=== PATIENT | female | born 1950 | race Caucasian/White ===

== ENCOUNTER 2020-05-11 16:20 | Inpatient (IN) | payer OTHER, MEDICAID, SELFPAY ==
[~2020-05-11] VITALS: Ht 167.6 cm; Wt 57.2 kg
[2020-05-11 16:20] VITALS: BP 129/77
--- NOTE | 2020-05-11 16:20 | NUR ---
Pt triage at bedside.
--- NOTE | 2020-05-11 16:24 | NUR ---
Kyree MANTILLA from [facility] for COVID + result. Asymptomatic at this time.
[2020-05-11] MEDS ORDERED: PANT40EC PO (16:33)
[2020-05-11] MEDS ORDERED: RISP0.5T3 PO (16:33)
[2020-05-11] MEDS ORDERED: DONE5TAB6 PO (16:33)
[2020-05-11] MEDS ORDERED: DOCU-299 PO (16:33)
[2020-05-11] MEDS ORDERED: ASPI-1822 PO (16:33)
[2020-05-11] MEDS ORDERED: LAM200 PO (16:33)
[2020-05-11] MEDS ORDERED: ACET-2619 PO (16:33)
[2020-05-11] MEDS ORDERED: LACO1TAB PO (16:33)
--- NOTE | 2020-05-11 17:18 | NUR ---
Pt repositioned for comfort, HOB elevated, visible rise and fall of chest. VSS, will continue to monitor.
--- NOTE | 2020-05-11 17:56 | NUR ---
ROSHAN ALEXANDRA swab performed, walked to lab.
--- NOTE | 2020-05-11 18:14 | NUR ---
Hernan fong in EDM - 05/11/20 at 1815 by MED1 certified medication technician at bedside for XR-chest.
--- NOTE | 2020-05-11 18:15 | NUR ---
electroplating technician at bedside for XR left elbow and right hand.
[2020-05-11 18:23] LABS: HEMATOCRIT 37.9 % (36-48); HEMOGLOBIN 12.7 g/dL (12.0-16.0); MEAN CORPUSCULAR HEMOGLOBIN 29 pg (27-31); MEAN CORPUSCULAR HGB CONC 34 g/dL (33-37); MEAN CORPUSCULAR VOLUME 86.4 fL (80-94); PLATELET COUNT (AUTO) 118 K/uL (140-450); RED BLOOD CELL COUNT(AUTO) 4.38 MIL/uL (4.20-5.40); RED CELL DISTRIBUTION WIDTH 13.3 % (11.6-13.7); WHITE BLOOD COUNT (AUTO) 2.1 K/uL (4.8-10.8)
--- NOTE | 2020-05-11 18:46 | NUR ---
Pt taken to CT via [facility]peyman.
[2020-05-11 18:50] LABS: ALBUMIN 3.8 g/dL (3.4-5.0); CARBON DIOXIDE 30.4 mmol/L (21-32); CREATININE 0.7 mg/dL (0.6-1.3); POTASSIUM 3.4 mmol/L (3.5-5.1); TOTAL BILIRUBIN 0.4 mg/dL (0.0-1.0)
[2020-05-11 18:57] LABS: PROTHROMBIN TIME 9.3 secs (10.8-13.4)
--- NOTE | 2020-05-11 19:00 | NUR ---
WBC 2.1, [place] 20.1, Covid +-- critical values received from lab. Dr Dudley made aware
--- NOTE | 2020-05-11 19:20 | NUR ---
Gave report to LUCILA Moore. Transfered care at this time.
--- NOTE | 2020-05-11 20:32 | NUR ---
PT APPEARS TO BE SLEEPING IN BED. CONNECTED TO BEDSIDE MONITOR. VSS, R/R EQUAL, AND UNLABORED. SIDE RAIL X2, BED IN LOW POSITION, WILL CONTINUE TO MONITOR.
[2020-05-11] MEDS ORDERED: ZOLPIDEM 5 MG TAB PO PRN (21:20)
[2020-05-11] MEDS ORDERED: ALBUTEROL HFA MDI 90 MCG/ACTUATION 8 GM INH PRN (21:20)
[2020-05-11] MEDS ORDERED: DOCUSATE SODIUM 100 MG GELCAP PO PRN (21:20)
[2020-05-11] MEDS ORDERED: ONDANSETRON 4 MG/2 ML VIAL IVP PRN (21:20)
[2020-05-11] MEDS ORDERED: HYDROcodone/APAP 5/325 MG 1 TAB TAB PO PRN (21:20)
[2020-05-11] MEDS ORDERED: AZITHROMYCIN 250 MG TAB PO SCH (21:20)
[2020-05-11] MEDS ORDERED: MORPHINE SULFATE 2 MG/ML SYR IVP PRN (21:20)
[2020-05-11] MEDS ORDERED: LORazepam 2 MG/ML VIAL IM/IVP PRN (21:20)
[2020-05-11] MEDS ORDERED: ACETAMINOPHEN 325 MG TAB PO PRN (21:20)
[2020-05-11] MEDS ORDERED: DEXAMETHASONE 4 MG TAB PO SCH (21:20)
[2020-05-11 21:45] LABS: LYMPHOCYTES % (MANUAL) 36 % (20-46); MONOCYTES % (MANUAL) 21 % (5-12)
--- NOTE | 2020-05-11 22:00 | NUR ---
SPOKE WITH PT'S DAUGHTER DINESH, NOTIFIED HER OF PT BEING ADMITTED TO TELE RM 120 A. DAUGHTER ALSO STATED PT FELL LAST Friday05/07/20. SHE STATES PT'S GLASSES SMASHED INTO LEFT SIDE OF FACE, CREATING LARGE BRUISE ON SIDE OF FACE, PT ALSO COMPLAINED OF RIGHT HAND/WRIST PAIN WITH BRUISING. PT HAS BRUISES IN SEVERAL LOCATIONS ON BODY THAT APPEAR BLUISH/YELLOW IN HEALING STAGE.
--- NOTE | 2020-05-11 22:04 | NUR ---
REPORT GIVEN TO LUCILA YARBROUGH IN TELE. ALSO INFORMED LUCILA YARBROUGH OF CONVERSATION WITH DAUGHTER DINESH, ABOUT PAST, AND PRESENT MEDICAL HX.
[2020-05-11 22:09] LABS: CHOL/HDL RATIO 2.3 (1-4.5); FREE T4 (FREE THYROXINE) 1.07 ng/dL (0.76-1.46); MAGNESIUM 1.7 mg/dL (1.8-2.4); PHOSPHORUS 3.1 mg/dL (2.5-4.9); THYROID STIMULATING HORMONE 2.1 uIU/mL (0.34-3.74)
--- NOTE | 2020-05-11 22:30 | NUR ---
PATIENT ADMITTED TO THE UNIT FOR ED. PATIENT IS AWAKE, ALERT AND ORIENTED. PT CURRENTLY ON ROOM AIR, NO SOB OR SIGNS AND DISTRESS NOTED. SPLINT NOTED ON THE RIGHT WRIST/HAND. SKIN TEAR NOTED ON THE LEFT ELBOW, BRUISING NOTED ON THE LEFT PERIORBITAL AREA. PATIENT WAS ABLE TO AMBULATE FROM GRUNEY TO BED. PATIENT USED THE BEDSIDE COMMODE TO VOID. URINE SAMPLE COLLECTED. REINFORCED TEACHING ON USING THE CALL LIGHT WHEN IN NEED OF ASSISTANCE OR GETTING OUT OF BED. PT VERBALIZED UNDERSTANDING. BED IN LOWEST POSITION, BED ALARM ON. PT PLACED ON TELE MONITORING. WILL CONTINUE TO MONITOR
--- NOTE | 2020-05-11 22:35 | NUR ---
Patient will be admitted to care of DR. MARINELLI. Admited to TELE. Will go to room 120 A. Belongings list completed. Report to LUCILA YARBROUGH.
[2020-05-11] MEDS ORDERED: cefTRIAXone 1,000 MG VIAL ONE (22:57)
--- NOTE | 2020-05-11 22:58 | NUR ---
PLACED FABRICATED ULNUR/GUTTER SPLINT ON PT'S RIGHT HAND ON FOURTH AND FIFTH DIDGET, CHECKED PMSC'S BEFORE AND AFTER WITHOUT INCIDENT.
[2020-05-11] MEDS: NACL 0.9% 1,000 ML IV SCH (23:18)
[2020-05-12 00:17] VITALS: BP 114/77
[2020-05-12 01:51] LABS: APPEARANCE,URINE CLEAR (CLEAR); BILIRUBIN,URINE NEGATIVE (NEGATIVE); BLOOD, URINE TRACE-L (NEGATIVE); COLOR,URINE YELLOW (YELLOW); LEUKOCYTE ESTERASE ,URINE NEGATIVE (NEGATIVE); NITRITE, URINE NEGATIVE (NEGATIVE); PH,URINE 7.5 (5.0-9.0); UGLUCOSE NEGATIVE (NEGATIVE)
[2020-05-12 02:23] LABS: BARBITURATE, URINE NEGATIVE ng/ml (NEG <=200); BENZODIAZEPINE, URINE NEGATIVE ng/mL (NEG <=200); CANNABINOID, URINE NEGATIVE ng/mL (NEG <=50); COCAINE, URINE NEGATIVE ng/mL (NEG <=300); OPIATE, URINE NEGATIVE ng/mL (NEG <=2000); PHENCYCLIDINE SCREEN,URINE NEGATIVE ng/mL (NEG <=25)
[2020-05-12 02:32] LABS: RBC,URINE 0-5 /HPF (0-5); WBC,URINE 0-5 /HPF (0-5)
[2020-05-12 04:00] VITALS: BP 117/68
--- NOTE | 2020-05-12 04:14 | NUR ---
PT ASLEEP IN BED. NO S/S OF DISTRESS NOTED AT THIS TIME
[2020-05-12 06:21] LABS: ALBUMIN 3.2 g/dL (3.4-5.0); ANION GAP 12.4 (8-16); CREATININE 0.6 mg/dL (0.6-1.3); MAGNESIUM 1.7 mg/dL (1.8-2.4); PHOSPHORUS 2.8 mg/dL (2.5-4.9); POTASSIUM 3.4 mmol/L (3.5-5.1); TOTAL BILIRUBIN 0.2 mg/dL (0.0-1.0)
[2020-05-12 06:29] LABS: BASOPHILS % (AUTO) 0.3 % (0.0-2.0); EOSINOPHILS % (AUTO) 0.2 % (0.0-4.0); HEMATOCRIT 33.4 % (36-48); HEMOGLOBIN 11.3 g/dL (12.0-16.0); LYMPHOCYTES # (AUTO) 0.3 K/uL (2.5-16.5); LYMPHOCYTES % (AUTO) 20.5 % (20.5-51.1); MEAN CORPUSCULAR HEMOGLOBIN 29 pg (27-31); MEAN CORPUSCULAR HGB CONC 34 g/dL (33-37); MEAN CORPUSCULAR VOLUME 85.8 fL (80-94); MONOCYTES # (AUTO) 0.2 K/uL (0.8-1.0); MONOCYTES % (AUTO) 13.3 % (1.7-9.3); NEUTROPHILS % (AUTO) 65.7 % (42.2-75.2); PLATELET COUNT (AUTO) 103 K/uL (140-450); RED CELL DISTRIBUTION WIDTH 13.3 % (11.6-13.7)
[2020-05-12] MEDS: NACL 0.9% 1,000 ML IV SCH ×2 (06:58→17:20)
--- NOTE | 2020-05-12 07:38 | NUR ---
PATIENT REPORT GIVEN TO AM NURSE. PT ENDORSED IN STABLE CONDITION
[2020-05-12 08:31] LABS: WHITE BLOOD COUNT (AUTO) 1.6 K/uL (4.8-10.8)
[2020-05-12 08:45] VITALS: BP 148/73
--- NOTE | 2020-05-12 08:45 | NUR ---
PT COMFORTABLE IN BED AND STATES NO PAIN/DISCOMFORT.
[2020-05-12] MEDS ORDERED: NON-FORMULARY ITEM (Lacosamide (Vimpat) 150 MG) PO SCH (09:00)
[2020-05-12] MEDS ORDERED: DEXAMETHASONE 4 MG TAB PO SCH (09:00)
--- NOTE | 2020-05-12 09:14 | NUR ---
PATIENT HAS BEEN SCREENED AND CATEGORIZED MODERATE NUTRITION RISK. PATIENT WILL BE SEEN WITHIN 3-5 DAYS OF ADMISSION. 05/14/20 05/16/[address]
[2020-05-12] MEDS: PANTOPRAZOLE 40 MG TABEC PO SCH (09:24)
[2020-05-12] MEDS: lamoTRIgine 25 MG TAB PO SCH ×2 (09:25→21:35)
[2020-05-12] MEDS: ASCORBIC ACID 500 MG TAB PO SCH (09:26)
[2020-05-12] MEDS: ASPIRIN 81 MG TAB.CHEW PO SCH (09:26)
[2020-05-12] MEDS: AZITHROMYCIN 250 MG TAB PO SCH (09:26)
[2020-05-12] MEDS: DONEPEZIL 10 MG TAB PO SCH (09:26)
[2020-05-12] MEDS: VITAMIN D 400 IU TAB PO SCH (09:27)
[2020-05-12] MEDS: ZINC SULF 220 MG CAP PO SCH ×2 (09:27→21:36)
--- NOTE | 2020-05-12 11:23 | NUR ---
PT WATCHING TV IN ROOM AT [place], CONTINUES TO STATE NO PAIN/DISCOMFORT AT THE MOMENT.
[2020-05-12 12:00] VITALS: BP 137/78
--- NOTE | 2020-05-12 13:23 | NUR ---
DC NDT INSPECTOR: SPOKE TO PATIENT REGARDING HOSPITAL DC. EXPLAINED TO HER THAT SHE HAS TESTED POSITIVE FOR COVID AND WILL HAVE TO GO TO A SNF AT THIS TIME. HER PREFERENCE WAS TO BE CLOSES TO HOME SO SHE HAS CHOSE [facility]. FAXED PATIENTS CLINICALS TO [facility] Addendum: 05/12/20 at 1357 by Chantel Nash CM DC NDT INSPECTOR: PATIENT HAS BEEN ACCEPTED AT [facility]. PATIENT CAN GO TO ROOM 208-B UNDER DR. LOPEZ. Addendum: 05/12/20 at 1359 by Chantel Nash CM DC DAVID: SPOKE TO MERE CRUZ [phone] [facility] [phone] Addendum: 05/12/20 at 1401 by Chantel Nash CM DC NDT INSPECTOR: IRENA TORRES AT [facility] SHE IS ABLE TO SET UP TRANSPORTATION. NICOLAS [phone] Addendum: 05/14/20 at 1227 by Chantel Nash CM DC NDT INSPECTOR: PER YESSENIA LOMBARDI PATIENT IS READY FOR DC. CONTACTED [facility] [phone] AND SPOKE TO RANDAL. THEY DID NOT HAVE ANY AVAILABLE TRANSPORTATION FOR TODAY. CONTACTED [facility] THEY WELL DIDN'T HAVE ANY AVAILABLE TRANSPORTATION. NOTIFIED YESSENIA LOMBARDI SHE WILL LET DR. JOHNSON KNOW. SET UP TRANSPORTATION FOR TOMORROW MORNING WITH [facility] FOR 11:00 AM
--- NOTE | 2020-05-12 14:15 | NUR ---
PT ON BED SEMIFOWLERS AND C/O NO PAIN OR DISCOMFORT. PT STATES SHE HAS BEEN HAVING BM W/ NO DIFFICULTY.
[2020-05-12] MEDS ORDERED: POTASSIUM CHLORIDE 10 MEQ TABER PO SCH (15:15)
[2020-05-12] MEDS ORDERED: MAGNESIUM OXIDE 400 MG TAB PO SCH (15:15)
--- NOTE | 2020-05-12 15:45 | NUR ---
PT STATES NO PAIN OR DISCOMFORT IN BED AND ALSO WHILE AMBULATING TO THE COMMODE. PT HAS BEEN VOIDING W/O DIFFICULTY.
[2020-05-12 16:02] VITALS: BP 116/67
--- NOTE | 2020-05-12 16:05 | NUR ---
PT'S R AC 20G INFILTRATED AND BECAME TENDER; D/C IV. ATTEMPTED TO PLACE IV BUT PT REFUSED. NOTIFIED PT OF THE IMPORTANCE ON IVF NS FOR HYDRATION. PT STILL REFUSED TO ANOTHER IV TO BE PLACED AND STATED SHE WILL BE DRINKING FLUIDS INSTEAD. WILL MONITOR AND ENCOURAGE ORAL WATER INTAKE FREQUENTLY.
--- NOTE | 2020-05-12 18:01 | NUR ---
PT REFUSED AGAIN FOR AN IV TO BE PLACED, REINFORCED TEACHING ABOUT HYDRATION. PT STILL REFUSED IVF NS, AND STATED SHE WOULD DRINK WATER INSTEAD AGAIN. PT STATED NO PAIN OR DISCOMFORT.
--- NOTE | 2020-05-12 18:51 | NUR ---
PT RESTING COMFORTABLY ON BED, WATCHING TV. PT STABLE AT THIS TIME AND WILL ENDORSE CARE TO ELECTRICAL ENGINEER RN.
--- NOTE | 2020-05-12 19:15 | NUR ---
RECEIVED BEDSIDE REPORT FROM DAY SHIFT NURSE FOR CONTINUITY OF CARE. PT IS AWAKE AND ALERT, A&OX4. SPEAKING APPROPRIATELY. LUNG SOUNDS DIMINISHED, ON RA. MED-SURG PT. AMBULATORY TO THE BEDSIDE COMMODE WITH ASSISTANCE. LEFT PERIORBITAL BRUISING, LEFT ELBOW SKIN TEAR, RIGHT PINKY FINGER FX. SKIN IS WARM AND DRY. LAST BM WAS TODAY PER DAY SHIFT NURSE. NO IV IN PLACE AT THIS TIME. WILL PLACE SHORTLY. PLAN OF CARE DISCUSSED. PT IS STABLE AT THIS TIME. BED IS IN THE LOWEST POSITION AND CALL LIGHT WITHIN REACH.
[2020-05-12 20:00] VITALS: BP 89/52
--- NOTE | 2020-05-12 21:30 | NUR ---
NEW IV WAS PLACED IN THE LEFT AC 24 GAUGE. IV IS PATENT AND INFUSING. PT TOLERATED THE INSERTION WELL. IV WAS PLACED ON THE FIRST TRY. NO DISTRESS NOTED, PT IS STABLE.
[2020-05-12] MEDS: VIMPAT 10MG/ML ORAL SOLUTION PO SCH (21:34)
[2020-05-12] MEDS: risperiDONE 1 MG TAB PO SCH (21:35)
--- NOTE | 2020-05-12 23:30 | NUR ---
PT IS UP TO THE RESTROOM TO VOID. GAIT IS STEADY. COMMODE AT BESIDE. LINENS WERE CHANGED REQUESTED.
[2020-05-13] VITALS: BP 82/53
[2020-05-13] MEDS ORDERED: NACL 0.9% 500 ML IV ONE (01:00)
--- NOTE | 2020-05-13 01:00 | NUR ---
PT'S BP IS 82/53. NO DISTRESS NOTED. NOTIFIED DR. MARINELLI ABOUT THE BLOOD PRESSURE READING. SHE ORDERED A BOLUS OF 500 ML OF NS WIDE OPEN. WILL ASSESS PT'S BP AFTER IT HAS INFUSED. IV IS PATENT AND INTACT.
--- NOTE | 2020-05-13 01:30 | NUR ---
PT IS ASLEEP. NO RESPIRATORY DISTRESS NOTED. CHEST RISE AND FALL IS SYMMETRICAL. BREATHING IS UNLABORED. BED IS IN THE LOWEST POSITION AND BELONGINGS ARE WITHIN REACH. WILL CONTINUE TO MONITOR.
--- NOTE | 2020-05-13 02:30 | NUR ---
BP IS NOW 106/78. BP HAS INCREASED AND PT IS MORE STABLE. PT DENIES ANY DIZZINESS OR DISTRESS. PT ALSO DENIES PAIN AND SOB. PT IS STABLE AT THIS TIME.
[2020-05-13] MEDS: NACL 0.9% 1,000 ML IV SCH ×3 (03:37→23:20)
[2020-05-13 04:00] VITALS: BP 103/62
--- NOTE | 2020-05-13 04:30 | NUR ---
ROUNDED ON PT. SHE IS ASLEEP IN HIGH FOWLERS POSITION. BREATHING IS UNLABORED. IV IS INFUSING FLUIDS ORDERED. COMMODE IS AT THE BEDSIDE. BELONGINGS ARE IN REACH.
--- NOTE | 2020-05-13 05:47 | NUR ---
PT IS AWAKE AND UP TO THE BEDSIDE COMMODE TO VOID. GAIT IS STEADY AT THIS TIME. PT DENIES ANY PAIN. PT IS STABLE.
--- NOTE | 2020-05-13 07:20 | NUR ---
ENDORSED PT TO DAY SHIFT NURSE FOR CONTINUITY OF CARE. PT IS ASLEEP. NO DISTRESS NOTED. IV FLUIDS ARE INFUSING. PLAN OF CARE DISCUSSED. PT IS STABLE.
--- NOTE | 2020-05-13 07:22 | NUR ---
RECEIVED REPORT FROM NIGHT NURSE PATIENT IS AAOX4, ROOM AIR AMBULATORY WITH ASSIST ON CARDIAC DIET WITH LEFT PERIORBITAL BRUISE DUE TO S/P FALL, LEFT ELBOW. TEAR AND RIGHT LITTLE FINGER FRACTURE WITH SPLINT AND BANDAGE. IV SITES INTACT AND PATENT INFUSING WELL.SAFETY MEASURES IN PLACE AND CALL LIGHT WITHIN REACH.
[2020-05-13 07:31] LABS: BASOPHILS % (AUTO) 0.3 % (0.0-2.0); EOSINOPHILS % (AUTO) 0.3 % (0.0-4.0); HEMATOCRIT 31.4 % (36-48); HEMOGLOBIN 10.6 g/dL (12.0-16.0); LYMPHOCYTES # (AUTO) 0.9 K/uL (2.5-16.5); LYMPHOCYTES % (AUTO) 39.4 % (20.5-51.1); MEAN CORPUSCULAR HEMOGLOBIN 29 pg (27-31); MEAN CORPUSCULAR HGB CONC 34 g/dL (33-37); MEAN CORPUSCULAR VOLUME 85.4 fL (80-94); MONOCYTES # (AUTO) 0.4 K/uL (0.8-1.0); MONOCYTES % (AUTO) 16.3 % (1.7-9.3); PLATELET COUNT (AUTO) 106 K/uL (140-450); RED BLOOD CELL COUNT(AUTO) 3.68 MIL/uL (4.20-5.40); RED CELL DISTRIBUTION WIDTH 12.8 % (11.6-13.7); WHITE BLOOD COUNT (AUTO) 2.3 K/uL (4.8-10.8)
[2020-05-13 08:00] VITALS: BP 99/50
[2020-05-13 08:13] LABS: ALBUMIN 2.9 g/dL (3.4-5.0); ANION GAP 11.4 (8-16); CARBON DIOXIDE 26.9 mmol/L (21-32); CREATININE 0.5 mg/dL (0.6-1.3); MAGNESIUM 1.6 mg/dL (1.8-2.4); PHOSPHORUS 2.6 mg/dL (2.5-4.9); POTASSIUM 3.3 mmol/L (3.5-5.1); TOTAL BILIRUBIN 0.2 mg/dL (0.0-1.0)
[2020-05-13 08:20] LABS: NEUTROPHILS % (AUTO) 43.7 % (42.2-75.2)
--- NOTE | 2020-05-13 09:01 | NUR ---
PATIENT POTASSIUM 3.3 AND MAGNESIUM 1.[address] JOHNSON AND SHE SAID OK.
[2020-05-13] MEDS: ASPIRIN 81 MG TAB.CHEW PO SCH (09:10)
[2020-05-13] MEDS: VITAMIN D 400 IU TAB PO SCH (09:10)
[2020-05-13] MEDS: DONEPEZIL 10 MG TAB PO SCH (09:11)
[2020-05-13] MEDS: AZITHROMYCIN 250 MG TAB PO SCH (09:12)
[2020-05-13] MEDS: ZINC SULF 220 MG CAP PO SCH ×2 (09:13→20:10)
[2020-05-13] MEDS: ASCORBIC ACID 500 MG TAB PO SCH (09:14)
[2020-05-13] MEDS: PANTOPRAZOLE 40 MG TABEC PO SCH (09:14)
[2020-05-13] MEDS: lamoTRIgine 25 MG TAB PO SCH ×2 (09:15→20:09)
[2020-05-13] MEDS: VIMPAT 10MG/ML ORAL SOLUTION PO SCH ×2 (09:20→20:28)
--- NOTE | 2020-05-13 09:20 | NUR ---
VIMPAT 10MG/ML 15ML ORAL SUSPENSION GIVEN TO PATIENT.
--- NOTE | 2020-05-13 09:45 | NUR ---
MEDICATION DUE GIVEN CHECK VITAL SIGNS PRIOR TO MEDICATION BP 99/50 KS 77 AND PATIENT TOLERATED WELL NO DISTRESS NOTED DENIES PAIN ABLE TO SWALLOW AND EAT WELL/. SAFETY MEASURES IN PLACE CALL LIGHT WITHIN REACH.
[2020-05-13 12:00] VITALS: BP 104/63
--- NOTE | 2020-05-13 13:00 | NUR ---
CHANGED DRESSING AND CLEAN LEFT ELBOW SKIN TEAR, DRY AND NO DRAINAGE.
[2020-05-13] MEDS ORDERED: POTASSIUM CHLORIDE 10 MEQ TABER PO PRN (13:30)
[2020-05-13] MEDS ORDERED: MAG SULF 2000 MG/WATER PREMIX 50 ML IV PRN (13:30)
--- NOTE | 2020-05-13 14:00 | NUR ---
POTASSIUM CHLORIDE 40 MEQ AND MAGNESIUM 2000 MG GIVEN PATIENT TOLERATED WELL, POTASSIUM LEVEL 3.3 AND MAGNESIUM 1.6
[2020-05-13 16:00] VITALS: BP 103/62
--- NOTE | 2020-05-13 17:31 | NUR ---
IV OUT AND PATIENT COMPLAINS OF PAIN ON THE IV SITES
--- NOTE | 2020-05-13 19:29 | NUR ---
ENDORSED TO NIGHT NURSE FOR CONTINUITY OF CARE. PT IS STABLE.
--- NOTE | 2020-05-13 19:30 | NUR ---
RECEIVED REPORT FROM JEAN CHAVEZ. PT AOX4 ON ROOM AIR. NO S/S RESPIRATORY DISTRESS. NO C/O PAIN AT THIS TIME. NO IV SITE IN PLACE. HAS L PERIORBITAL BRUISE, L ELBOW SKIN TEAR, R PINKY FRACTURE. SAFETY MEASURES IN PLACE. CALL LIGHT WITHIN REACH. WILL CONTINUE TO MONITOR
[2020-05-13 20:00] VITALS: BP 101/57
[2020-05-13] MEDS: risperiDONE 1 MG TAB PO SCH (20:10)
--- NOTE | 2020-05-13 20:15 | NUR ---
ADMINISTERED SCHEDULED MEDS. MEDICATION EDUCATION PROVIDED. PT TOLERATED WELL. NO DISTRESS NOTED. WILL CONTINUE TO MONITOR
[2020-05-13] MEDS: ENOXAPARIN 60 MG/0.6 ML SYR SUBQ SCH (20:17)
--- NOTE | 2020-05-13 22:15 | NUR ---
PT AWAKE IN BED. WATCHING TELEVISION. RESPIRATIONS EVEN AND UNLABORED. DENIES SOB, DENIES PAIN. NO DISTRESS NOTED. WILL CONTINUE TO MONITOR
--- NOTE | 2020-05-14 00:30 | NUR ---
PT ASLEEP IN BED. NO S/S RESPIRATORY DISTRESS. WILL CONTINUE TO MONITOR
--- NOTE | 2020-05-14 03:46 | NUR ---
PT AWAKE RESTING IN BED. DENIES PAIN, DENIES DISCOMFORT. NO DISTRESS NOTED. WILL CONTINUE TO MONITOR
[2020-05-14 04:00] VITALS: BP 132/62
--- NOTE | 2020-05-14 07:15 | NUR ---
ENDORSED PT TO DAY RN FOR CONTINUITY OF CARE. PT IS IN STABLE CONDITION
--- NOTE | 2020-05-14 07:15 | NUR ---
RECEIVED PATIENT FROM NIGHT NURSE. PATIENT SITTING UP IN BED AWAKE AND ALERT. RESP EVEN AND UNLABORED ON ROOM AIR. DENIED OF PAIN AT THIS TIME. DROPLET PRECAUTIONS OBSERVED. L EYE NOTED WITH BRUISING, RIGHT ARM WITH SPLIT WRAPPED FROM ELBOW TO RIGHT PINKY. SEIZURE AND FALL PRECAUTIONS IN PLACE. PATIENT ABLE TO FOLLOW COMMANDS. RAC 24G INFUSING NS. PLAN OF CARE DISCUSSED WITH PATIENT. PATIENT VERBALIZED UNDERSTANDING. CALL LIGHT WITHIN REACH. SAFETY MEASURES IN PLACE. WILL CONTINUE TO MONITOR.
[2020-05-14 08:00] VITALS: BP 123/76
[2020-05-14] MEDS: ENOXAPARIN 60 MG/0.6 ML SYR SUBQ SCH ×2 (08:42→21:00)
[2020-05-14] MEDS: ASPIRIN 81 MG TAB.CHEW PO SCH (08:43)
[2020-05-14] MEDS: ASCORBIC ACID 500 MG TAB PO SCH (08:48)
[2020-05-14] MEDS: DONEPEZIL 10 MG TAB PO SCH (08:48)
[2020-05-14] MEDS: AZITHROMYCIN 250 MG TAB PO SCH (08:48)
[2020-05-14] MEDS: lamoTRIgine 25 MG TAB PO SCH ×2 (08:48→21:01)
[2020-05-14] MEDS: PANTOPRAZOLE 40 MG TABEC PO SCH (08:49)
[2020-05-14] MEDS: ZINC SULF 220 MG CAP PO SCH ×2 (08:49→21:00)
[2020-05-14] MEDS: VITAMIN D 400 IU TAB PO SCH (08:49)
--- NOTE | 2020-05-14 08:50 | NUR ---
MORNING ROUTINE MEDICATIONS GIVEN. PATIENT TOLERATED WELL. PATIENT SITTING UP IN BED AWAKE, ALERT, AND ORIENTED X4. RESP EVEN AND UNLABORED ON ROOM AIR. DENIED OF PAIN AT THIS TIME. LEFT ELBOW SKIN LACERATION NOTED COVERED WITH ISLAND DRESSING, RIGHT ARM SPLIT COVERED IN SILVER BANDAGE WITH PINK AND 4TH DIGIT, LEFT PERIORBITAL BRUISING NOTED. PATIENT IS HARD TO HEAR TO BOTH EARS BUT ABLE TO ACKNOWLEDGE NEEDS. PATIENT USED BEDSIDE COMMODE WITHOUT ANY DIFFICULTY. SAFETY MEASURES IN PLACE. SEIZURE PRECAUTION IN PLACE. CALL LIGHT WITHIN REACH. WILL CONTINUE TO MONITOR.
[2020-05-14] MEDS: VIMPAT 10MG/ML ORAL SOLUTION PO SCH ×2 (08:59→21:02)
[2020-05-14] MEDS: NACL 0.9% 1,000 ML IV SCH ×2 (09:17→19:20)
[2020-05-14 10:21] LABS: BASOPHILS % (AUTO) 0.1 % (0.0-2.0); EOSINOPHILS % (AUTO) 0.1 % (0.0-4.0); HEMATOCRIT 35.7 % (36-48); HEMOGLOBIN 11.9 g/dL (12.0-16.0); LYMPHOCYTES # (AUTO) 0.5 K/uL (2.5-16.5); LYMPHOCYTES % (AUTO) 12.7 % (20.5-51.1); MEAN CORPUSCULAR HEMOGLOBIN 29 pg (27-31); MEAN CORPUSCULAR HGB CONC 34 g/dL (33-37); MEAN CORPUSCULAR VOLUME 86.9 fL (80-94); MONOCYTES # (AUTO) 0.5 K/uL (0.8-1.0); MONOCYTES % (AUTO) 11.8 % (1.7-9.3); NEUTROPHILS # (AUTO) 3.1 K/uL (1.8-7.7); NEUTROPHILS % (AUTO) 75.3 % (42.2-75.2); PLATELET COUNT (AUTO) 110 K/uL (140-450); RED BLOOD CELL COUNT(AUTO) 4.11 MIL/uL (4.20-5.40); RED CELL DISTRIBUTION WIDTH 13.1 % (11.6-13.7); WHITE BLOOD COUNT (AUTO) 4.1 K/uL (4.8-10.8)
[2020-05-14 10:29] LABS: ANION GAP 13.6 (8-16); CARBON DIOXIDE 27.1 mmol/L (21-32); CREATININE 0.8 mg/dL (0.6-1.3)
[2020-05-14 10:35] LABS: MAGNESIUM 1.7 mg/dL (1.8-2.4); PHOSPHORUS 2.2 mg/dL (2.5-4.9)
[2020-05-14 10:36] LABS: POTASSIUM 2.7 mmol/L (3.5-5.1)
--- NOTE | 2020-05-14 10:55 | NUR ---
PATIENT IN BED AWAKE AND ALERT WATCHING TV. DENIED OF PAIN AT THIS TIME. NO SOB REPORTED. NO COUGHS. CALL LIGHT WITHIN REACH. WILL CONTINUE TO MONITOR.
--- NOTE | 2020-05-14 12:35 | NUR ---
PATIENT SITTING UP IN BED EATING LUNCH, TOLERATING WELL. NO NOTED DISTRESS AT THIS TIME. CALL LIGHT WITHIN REACH. WILL CONTINUE TO MONITOR.
--- NOTE | 2020-05-14 14:35 | NUR ---
PATIENT IN BED AWAKE AND ALERT WATCHING TV. RESP EVEN AND UNLABORED ON ROOM AIR. DENIED OF PAIN. PATIENT USED BEDSIDE COMMODE WITHOUT ANY ASSIST. ABLE TO MAKE NEEDS KNOWN. CALL LIGHT WITHIN REACH. WILL CONTINUE TO MONITOR.
[2020-05-14] MEDS ORDERED: MAG SULF 2000 MG/WATER PREMIX 50 ML IV SCH (14:45)
[2020-05-14] MEDS ORDERED: POTASSIUM PHOSPHATE 15 MM in NACL 0.9% 250 ML IV SCH (14:45)
[2020-05-14 16:00] VITALS: BP 126/76
--- NOTE | 2020-05-14 16:38 | NUR ---
PATIENT IN BED RESTING, CHEST NOTED RISING. NO ACUTE S/S DISTRESS. CALL LIGHT WITHIN REACH. WILL CONTINUE TO MONITOR.
--- NOTE | 2020-05-14 18:21 | NUR ---
RAC 22G INFILTRATED. IV INSERTION TO LEFT UPPER ARM 22G USING ASEPTIC TECHNIQUE. PATIENT TOLERATED WELL. IV FLUID RESUMES. RESP EVEN AND UNLABORED ON ROOM AIR. DENIED OF PAIN AT THIS TIME. CALL LIGHT WITHIN REACH. WILL CONTINUE TO MONITOR.
[2020-05-14] MEDS ORDERED: POTASSIUM CHLORIDE 10 MEQ TABER PO PRN ×2 (19:05)
[2020-05-14] MEDS ORDERED: MAG SULF 2000 MG/WATER PREMIX 50 ML IV PRN ×2 (19:05)
--- NOTE | 2020-05-14 19:15 | NUR ---
ENDORSED PATIENT TO NIGHT NURSE. PATIENT IN STABLE CONDITION.
--- NOTE | 2020-05-14 19:16 | NUR ---
RECEIVED REPORT FROM JEAN RNRANDAL. PT AWAKE AND ALERT. NO S/S RESPIRATORY DISTRESS ON ROOM AIR. DENIES PAIN AT THIS TIME. BRUISE ON LEFT EYE. RIGHT ARM WITH SPLINT WRAPPED FROM ELBOW TO PINKY. SEIZURE AND FALL PRECAUTIONS IN PLACE. RAC 24G INFUSING NS. CALL LIGHT WITHIN REACH. SAFETY MEASURES IN PLACE. WILL CONTINUE TO MONITOR.
[2020-05-14 20:00] VITALS: BP 102/67
[2020-05-14] MEDS: risperiDONE 1 MG TAB PO SCH (21:00)
--- NOTE | 2020-05-14 21:12 | NUR ---
ADMINISTERED SCHEDULED MEDS PER MD. MEDICATION EDUCATION PROVIDED. PT TOLERATED WELL. NO DISTRESS NOTED. WILL CONTINUE TO MONITOR
--- NOTE | 2020-05-14 23:35 | NUR ---
PT AWAKE RESTING IN BED. WATCHING TELEVISION. DENIES PAIN, NO S/S RESPIRATORY DISTRESS. WILL CONTINUE TO MONITOR
--- NOTE | 2020-05-15 01:20 | NUR ---
PT ASLEEP IN BED. RESPIRATIONS EVEN AND UNLABORED. WILL CONTINUE TO MONITOR
[2020-05-15 04:00] VITALS: BP 118/84
[2020-05-15] MEDS: NACL 0.9% 1,000 ML IV SCH (05:20)
[2020-05-15 06:17] LABS: BASOPHILS % (AUTO) 0.1 % (0.0-2.0); HEMATOCRIT 36.1 % (36-48); HEMOGLOBIN 12.2 g/dL (12.0-16.0); LYMPHOCYTES # (AUTO) 0.5 K/uL (2.5-16.5); LYMPHOCYTES % (AUTO) 12.7 % (20.5-51.1); MEAN CORPUSCULAR HEMOGLOBIN 29 pg (27-31); MEAN CORPUSCULAR HGB CONC 34 g/dL (33-37); MEAN CORPUSCULAR VOLUME 85.8 fL (80-94); MONOCYTES # (AUTO) 0.6 K/uL (0.8-1.0); MONOCYTES % (AUTO) 15.1 % (1.7-9.3); NEUTROPHILS # (AUTO) 2.8 K/uL (1.8-7.7); NEUTROPHILS % (AUTO) 72.1 % (42.2-75.2); PLATELET COUNT (AUTO) 131 K/uL (140-450); RED BLOOD CELL COUNT(AUTO) 4.21 MIL/uL (4.20-5.40); WHITE BLOOD COUNT (AUTO) 3.9 K/uL (4.8-10.8)
[2020-05-15 06:40] LABS: MAGNESIUM 1.8 mg/dL (1.8-2.4); PHOSPHORUS 2.7 mg/dL (2.5-4.9)
[2020-05-15 06:45] LABS: ANION GAP 11.7 (8-16); CARBON DIOXIDE 29.6 mmol/L (21-32); CREATININE 0.7 mg/dL (0.6-1.3); POTASSIUM 3.3 mmol/L (3.5-5.1)
--- NOTE | 2020-05-15 07:19 | NUR ---
ENDORSED PT TO DAY RN FOR CONTINUITY OF CARE. PT IS IN STABLE CONDITION
--- NOTE | 2020-05-15 07:20 | NUR ---
Received report from PM RN for continuity of care. Pt is stable, resting with eyes closed at this time. Safety measures in place. Call light within reach. Will continue with POC.
[2020-05-15 08:00] VITALS: BP 100/53
[2020-05-15] MEDS: ASPIRIN 81 MG TAB.CHEW PO SCH (09:29)
[2020-05-15] MEDS: VITAMIN D 400 IU TAB PO SCH (09:29)
[2020-05-15] MEDS: ZINC SULF 220 MG CAP PO SCH (09:29)
[2020-05-15] MEDS: PANTOPRAZOLE 40 MG TABEC PO SCH (09:29)
[2020-05-15] MEDS: ASCORBIC ACID 500 MG TAB PO SCH (09:29)
[2020-05-15] MEDS: lamoTRIgine 25 MG TAB PO SCH (09:30)
[2020-05-15] MEDS: DONEPEZIL 10 MG TAB PO SCH (09:30)
[2020-05-15] MEDS: AZITHROMYCIN 250 MG TAB PO SCH (09:30)
[2020-05-15] MEDS: ENOXAPARIN 60 MG/0.6 ML SYR SUBQ SCH (09:33)
[2020-05-15] MEDS: VIMPAT 10MG/ML ORAL SOLUTION PO SCH (09:37)
--- NOTE | 2020-05-15 09:40 | NUR ---
PT IS AWAKE AND ORIENTED X4. IN NO DISTRESS. RESP EVEN AND UNLABORED. TOLERATED PO MEDICATION WITH NO PROBLEMS. LUNG SOUNDS DIMINISHED, ABD IS SOFT AND NONTENDER WITH ACTIVE BS. DISCOLORATION REMAINS TO LEFT EYE AND ELBOW COVERED WITH DRESSING. PT HAS INTACT AND PATENT IV ACCESS TO RIGHT AC RECEIVING IVF. HAS SPLINT TO RIGHT PINKY FINGER. SAFETY MEASURES IN PLACE. WILL CONTINUE TO MONITOR. PT RECEIVED K DUR FOR K 3.3 WILL CONTINUE TO MONITOR AND CONTINUE WITH POC.
[2020-05-15 10:38] VITALS: BP 100/53
[2020-05-15] MEDS ORDERED: VITC500 PO (10:56)
[2020-05-15] MEDS ORDERED: POTA10TE30 PO (10:56)
[2020-05-15] MEDS ORDERED: DEXA6TAB1 PO (10:56)
[2020-05-15] MEDS ORDERED: LAM25 PO (10:56)
[2020-05-15] MEDS ORDERED: LOV60I SUBQ (10:56)
[2020-05-15] MEDS ORDERED: ZINC220C28 PO (10:56)
[2020-05-15] MEDS ORDERED: AZIT250T11 PO (10:56)
[2020-05-15] MEDS ORDERED: VITD400 PO (10:56)
--- NOTE | 2020-05-15 11:42 | NUR ---
PT DISCHARGE AT THIS TIME PT IN NO DISTRESS. CONTINUES TO HAVE SAME INJURIES UPON ADMISSION INCLUDING DISCOLORATION TO LEFT EYE AND SKIN TEAR TO ELBOW. LEFT WITH ALL BELONGINGS AND DISCHARGE PACKAGE, VERBALIZED UNDERSTANDING. COPY OF CHART PROVIDED FOR OTHER FACILITY
== END 2020-05-15 11:42 | DRG 178 ==
LOC: MED 16:20 → MTU 21:21
PROVIDERS: ADMIT Family Medicine; ATTEND Family Medicine
DX: U07.1 COVID-19 (principal); E44.0 Moderate protein-calorie malnutrition; E83.39 Other disorders of phosphorus metabolism; G40.909 Epilepsy, unspecified, not intractable, without status epilepticus; I10 Essential (primary) hypertension; K21.9 Gastro-esophageal reflux disease without esophagitis; F03.90 Unspecified dementia, unspecified severity, without behavioral disturbance, psychotic disturbance, mood disturbance, and anxiety; E83.42 Hypomagnesemia; D72.829 Elevated white blood cell count, unspecified; E87.6 Hypokalemia; R26.9 Unspecified abnormalities of gait and mobility; S62.619A Displaced fracture of proximal phalanx of unspecified finger, initial encounter for closed fracture; S50.312A Abrasion of left elbow, initial encounter; W01.0XXA Fall on same level from slipping, tripping and stumbling without subsequent striking against object, initial encounter; Y93.89 Activity, other specified; Y92.89 Other specified places as the place of occurrence of the external cause; Z68.20 Body mass index [BMI] 20.0-20.9, adult; Y99.8 Other external cause status
CPT/HCPCS: 36415; 70450; 71045; 72125; 72220; 73080; 73130; 80048; 80053; 80305; 81001; 82150; 82550; 83036; 83605; 83615; 83690; 83735; 83880; 84100; 84439; 84443; 84484; 85025; 85379; 85610; 85651; 86140; 87081; 93005; 97116; 97161-GP; 97530; 99285; J0696; J1650; J3475; J7030; J7060

== ENCOUNTER 2020-11-10 08:40 | Emergency (ER) | payer OTHER, MEDICAID ==
[~2020-11-10] VITALS: Ht 170.2 cm; Wt 49.9 kg
[~2020-11-10 08:40] MED LIST: ACET-2619 PO; ALUM355S59 PO; ASPI-1822 PO; ATOR20TA40 PO; CHOL25TA2 PO; DOCU-299 PO; DONE5TAB6 PO; LACO1TAB PO; LAM200 PO; LISI-648 PO; POTA10TE30 PO; RISP0.5T3 PO; VITC500 PO; ZINC220C28 PO
[2020-11-10 08:43] VITALS: BP 104/56
[2020-11-10] MEDS ORDERED: DOCU1TAB73 PO (08:52)
[2020-11-10] MEDS ORDERED: MEMA10TA PO (08:52)
[2020-11-10] MEDS ORDERED: BISA-28 PO (08:52)
[2020-11-10] MEDS ORDERED: LACO150T PO (08:52)
[2020-11-10] MEDS: ACETAMINOPHEN 325 MG TAB PO ONE ×2 (08:59→09:02)
[2020-11-10 09:10] LABS: BASOPHILS % (AUTO) 0.6 % (0.0-2.0); EOSINOPHILS # (AUTO) 0.1 K/uL (0-0.4); EOSINOPHILS % (AUTO) 1.6 % (0.0-4.0); HEMATOCRIT 36.5 % (36-48); HEMOGLOBIN 12.6 g/dL (12.0-16.0); LYMPHOCYTES # (AUTO) 0.5 K/uL (2.5-16.5); LYMPHOCYTES % (AUTO) 13.8 % (20.5-51.1); MEAN CORPUSCULAR HEMOGLOBIN 30 pg (27-31); MEAN CORPUSCULAR HGB CONC 35 g/dL (33-37); MEAN CORPUSCULAR VOLUME 86.7 fL (80-94); MONOCYTES # (AUTO) 0.6 K/uL (0.8-1.0); MONOCYTES % (AUTO) 16.4 % (1.7-9.3); NEUTROPHILS # (AUTO) 2.3 K/uL (1.8-7.7); NEUTROPHILS % (AUTO) 67.6 % (42.2-75.2); PLATELET COUNT (AUTO) 107 K/uL (140-450); RED BLOOD CELL COUNT(AUTO) 4.21 MIL/uL (4.20-5.40); WHITE BLOOD COUNT (AUTO) 3.4 K/uL (4.8-10.8)
[2020-11-10 09:27] LABS: ALBUMIN 3.5 g/dL (3.4-5.0); ANION GAP 11.3 (8-16); CARBON DIOXIDE 28.5 mmol/L (21-32); CREATININE 0.8 mg/dL (0.6-1.3); POTASSIUM 3.8 mmol/L (3.5-5.1); TOTAL BILIRUBIN 0.5 mg/dL (0.0-1.0)
[2020-11-10] MEDS ORDERED: MIRABULK PO (09:41)
[2020-11-10 10:04] VITALS: BP 92/56
== END 2020-11-10 10:05 | disposition home or self-care (01) ==
LOC: MED 08:40
DX: K59.00 Constipation, unspecified (principal); R07.0 Pain in throat; D69.6 Thrombocytopenia, unspecified; F03.90 Unspecified dementia, unspecified severity, without behavioral disturbance, psychotic disturbance, mood disturbance, and anxiety; I10 Essential (primary) hypertension; Z79.899 Other long term (current) drug therapy
CPT/HCPCS: 36415; 71045; 80053; 83690; 84484; 85025; 93005; 99285

== ENCOUNTER 2020-11-13 11:16 | Emergency (ER) | payer OTHER, MEDICAID ==
[~2020-11-13] VITALS: Ht 162.6 cm; Wt 58.1 kg
[~2020-11-13 11:16] MED LIST changes: -ALUM355S59 PO; +BISA-28 PO; -DOCU-299 PO; +DOCU1TAB73 PO; +LACO150T PO; -LACO1TAB PO; +MEMA10TA PO; +MIRABULK PO
--- NOTE | 2020-11-13 11:16 | NUR ---
Patient BIBA to bed 8 at this time.
[2020-11-13 11:23] VITALS: BP 117/77
--- NOTE | 2020-11-13 11:32 | NUR ---
PT BIBA FROM [facility] WITH C/O CHEST PAIN, PT DENIES ANY CHEST PAIN AT THIS MOMENT, VSS, PT IS CONFUSED, AAOX2. STATED SHE JUST FELL FROM THE CHAIR. DENIES PAIN AT THIS MOMENT. HX: DEMENTIA, ALZHEIMERS, NEUROPATHY, HYPERLIDIPDEMIA, ARTHRITIS, SUNDOWNERS, HALLUSINATIONS, EPILEPSY, DEPRESSION ALLERGY: CODEINE RX: ACETAMINOPHEN, ASA, ATORVASTATIN, BISACODYL, CHOLECALCIFEROL, DONEPEZIL, LAMOTRIGINE, LISINOPRIL, NAMENDA, KCL, RISPERIDONE, SENNA, VIMPAT, VIT C, ZINC.
--- NOTE | 2020-11-13 11:35 | NUR ---
Dr. Morales at bedside evaluating patient.
[2020-11-13] MEDS ORDERED: LAM25 PO (11:41)
[2020-11-13] MEDS ORDERED: ASPIRIN 325 MG TAB PO ONE (11:45)
[2020-11-13 12:01] LABS: BASOPHILS % (AUTO) 0.7 % (0.0-2.0); EOSINOPHILS % (AUTO) 0.4 % (0.0-4.0); HEMATOCRIT 37.5 % (36-48); HEMOGLOBIN 12.6 g/dL (12.0-16.0); LYMPHOCYTES # (AUTO) 1.2 K/uL (2.5-16.5); LYMPHOCYTES % (AUTO) 33.4 % (20.5-51.1); MEAN CORPUSCULAR HEMOGLOBIN 30 pg (27-31); MEAN CORPUSCULAR HGB CONC 34 g/dL (33-37); MEAN CORPUSCULAR VOLUME 88.7 fL (80-94); MONOCYTES # (AUTO) 0.6 K/uL (0.8-1.0); MONOCYTES % (AUTO) 15.9 % (1.7-9.3); NEUTROPHILS # (AUTO) 1.7 K/uL (1.8-7.7); NEUTROPHILS % (AUTO) 49.6 % (42.2-75.2); PLATELET COUNT (AUTO) 104 K/uL (140-450); RED BLOOD CELL COUNT(AUTO) 4.23 MIL/uL (4.20-5.40); WHITE BLOOD COUNT (AUTO) 3.5 K/uL (4.8-10.8)
[2020-11-13 12:09] LABS: CARBON DIOXIDE 29.8 mmol/L (21-32); CREATININE 0.7 mg/dL (0.6-1.3); POTASSIUM 3.8 mmol/L (3.5-5.1)
--- NOTE | 2020-11-13 18:11 | NUR ---
PT PROVIDED WITH MEAL TRAY AND SET UP EATING WHILE WAITING FOR TRANSPORTATION.
--- NOTE | 2020-11-13 18:50 | NUR ---
[facility] AT BEDSIDE
[2020-11-13 19:04] VITALS: BP 128/72
--- NOTE | 2020-11-13 19:07 | NUR ---
Patient discharged with v/s stable. Written and verbal after care instructions given and explained. Patient verbalized understanding. [facility]. All questions addressed prior to discharge. Advised to follow up with PMD.
== END 2020-11-13 19:07 | disposition home or self-care (01) ==
LOC: MED 11:16
DX: R00.2 Palpitations (principal); R14.1 Gas pain; F03.90 Unspecified dementia, unspecified severity, without behavioral disturbance, psychotic disturbance, mood disturbance, and anxiety; G30.9 Alzheimer's disease, unspecified; E78.5 Hyperlipidemia, unspecified; G40.909 Epilepsy, unspecified, not intractable, without status epilepticus; Z79.899 Other long term (current) drug therapy; Z79.82 Long term (current) use of aspirin; Z88.5 Allergy status to narcotic agent
CPT/HCPCS: 36415; 71045; 80048; 84484; 85025; 93005; 99285

== ENCOUNTER 2020-11-15 22:06 | Emergency (ER) | payer OTHER, MEDICAID ==
[~2020-11-15] VITALS: Ht 162.6 cm; Wt 63.5 kg
[~2020-11-15 22:06] MED LIST changes: -BISA-28 PO; +LAM25 PO; -MIRABULK PO
[2020-11-15 22:10] VITALS: BP 109/60
--- NOTE | 2020-11-15 22:15 | NUR ---
PATIENT BIBA S/P UNWITNESSED FALL AT [facility]. A & O X3. UNAMBULATORY. PATIENT VSS: 94/70, HR 72, O2 96% R.A. 18 RR. PATIENT NOTED WITH BRUISING TO RIGHT EYEBROW AND LACERATION TO RIGHT FORARM. BLEEDING CONTROLLED. PERRLA NOTED. PT DENIES PAIN AT THIS TIME. DENIES N/V/D, FEVER, CHILLS, CP, SOB. PER PATIENT SHE DID NOT LOSE CONSCIOUSNESS BUT COULD NOT GET UP AFTER SHE "SLIPPED ON THE FLOOR." SEE COMPLETE ASSESSMENT FOR FURTHER DETAILS MED HX: DEMENTIA, "CARDIAC PROBLEMS" ALLERGIES: CODEINE
--- NOTE | 2020-11-15 22:38 | NUR ---
PT TAKEN TO CT VIA [facility]
--- NOTE | 2020-11-15 22:41 | NUR ---
PT TAKEN TO CT VIA [facility] WITH TECH.
--- NOTE | 2020-11-15 22:53 | NUR ---
PATIENT RETURNED FROM CT VIA [facility] WITH HELEN.
[2020-11-15] MEDS ORDERED: ACETAMINOPHEN EXTRA STRENGTH 500 MG TAB PO ONE (23:50)
--- NOTE | 2020-11-16 00:05 | NUR ---
PATIENT RESTING COMFORTABLY IN BED. PT DENIES ANY NEEDS AT THIS TIME. POSITIONED FOR COMFORT.
--- NOTE | 2020-11-16 01:24 | NUR ---
PATIENT PROVIDED WARM BLANKET AND REPOSITIONED FOR COMFORT.
--- NOTE | 2020-11-16 02:55 | NUR ---
Patient appears to be resting comfortably in bed. Vital Signs within normal limits. Respirations even and unlabored. PT STATES, "I AM VERY COMFORTABLE." PT DENIES PAIN OR DISCOMFORT AT THIS TIME.
--- NOTE | 2020-11-16 05:00 | NUR ---
Patient appears to be resting comfortably in bed. Vital Signs within normal limits. Respirations even and unlabored. PROVIDED ANOTHER WARM BLANKET FOR PATIENTS COMFORT. PATIENT DENIES PAIN OR DISCOMFORT AT THIS TIME.
--- NOTE | 2020-11-16 06:26 | NUR ---
ICE APPLIED TO PATIENTS RIGHT EYEBROW. WATER PROVIDED PER PTS REQUEST. PATIENT REPOSITIONED FOR COMFORT. DENIES PAIN AT THIS TIME.
--- NOTE | 2020-11-16 07:07 | NUR ---
REPORT GIVEN TO LUCILA ESCOTO FOR CONTINUITY OF CARE.
--- NOTE | 2020-11-16 07:25 | NUR ---
Patient resting comfotably in bed, on bedside derrick man, vital signs stable.
--- NOTE | 2020-11-16 07:40 | NUR ---
Awaiting transport from [facility], ETA 15-20 min.
[2020-11-16 08:03] VITALS: BP 89/50
--- NOTE | 2020-11-16 08:03 | NUR ---
[facility] transport picked up patient, patient wheel chair assisted to [place]. Patient discharged with v/s stable. Written and verbal after care instructions given and explained. Patient verbalized understanding. All questions addressed prior to discharge. Advised to follow up with PMD.
== END 2020-11-16 08:03 ==
LOC: MED 22:06
DX: S05.11XA Contusion of eyeball and orbital tissues, right eye, initial encounter (principal); F03.90 Unspecified dementia, unspecified severity, without behavioral disturbance, psychotic disturbance, mood disturbance, and anxiety; Z79.82 Long term (current) use of aspirin; Z88.5 Allergy status to narcotic agent; Z79.899 Other long term (current) drug therapy; W19.XXXA Unspecified fall, initial encounter; Y93.89 Activity, other specified; Y92.89 Other specified places as the place of occurrence of the external cause; Y99.8 Other external cause status
CPT/HCPCS: 70450; 70486; 72125; 99285

== ENCOUNTER 2020-12-01 09:45 | Inpatient (IN) | payer OTHER, MEDICAID, SELFPAY ==
[~2020-12-01] VITALS: Ht 167.6 cm; Wt 62.6 kg
[2020-12-01 09:54] VITALS: BP 107/49
[2020-12-01 12:59] LABS: BASOPHILS % (AUTO) 0.1 % (0.0-2.0); EOSINOPHILS % (AUTO) 0.1 % (0.0-4.0); HEMATOCRIT 31.5 % (36-48); HEMOGLOBIN 10.7 g/dL (12.0-16.0); LYMPHOCYTES # (AUTO) 0.6 K/uL (2.5-16.5); LYMPHOCYTES % (AUTO) 10.1 % (20.5-51.1); MEAN CORPUSCULAR HEMOGLOBIN 30 pg (27-31); MEAN CORPUSCULAR HGB CONC 34 g/dL (33-37); MEAN CORPUSCULAR VOLUME 89.4 fL (80-94); MONOCYTES # (AUTO) 0.7 K/uL (0.8-1.0); MONOCYTES % (AUTO) 12.7 % (1.7-9.3); NEUTROPHILS # (AUTO) 4.4 K/uL (1.8-7.7); PLATELET COUNT (AUTO) 140 K/uL (140-450); RED BLOOD CELL COUNT(AUTO) 3.52 MIL/uL (4.20-5.40); RED CELL DISTRIBUTION WIDTH 13.7 % (11.6-13.7); WHITE BLOOD COUNT (AUTO) 5.8 K/uL (4.8-10.8)
[2020-12-01 13:13] LABS: ANION GAP 13.9 (8-16); CARBON DIOXIDE 27.7 mmol/L (21-32); CREATININE 0.6 mg/dL (0.6-1.3); POTASSIUM 3.6 mmol/L (3.5-5.1)
[2020-12-01 13:22] LABS: PROTHROMBIN TIME 11.7 secs (10.8-13.4)
[2020-12-01 13:25] LABS: ALBUMIN 3.4 g/dL (3.4-5.0); TOTAL BILIRUBIN 2.1 mg/dL (0.0-1.0)
[2020-12-01] MEDS ORDERED: LACO10SO3 PO (13:54)
[2020-12-01] MEDS ORDERED: LACT-103 PO (14:01)
[2020-12-01] MEDS ORDERED: ONDA4TAB PO (14:02)
[2020-12-01] MEDS ORDERED: MIRT-91 PO (14:03)
[2020-12-01] MEDS ORDERED: RISP2TAB PO (14:07)
[2020-12-01] MEDS ORDERED: ONDANSETRON 4 MG/2 ML VIAL IM/IVP PRN (15:30)
[2020-12-01] MEDS ORDERED: DOCUSATE SODIUM 100 MG GELCAP PO PRN (15:30)
[2020-12-01] MEDS ORDERED: ZOLPIDEM 5 MG TAB PO PRN (15:30)
[2020-12-01] MEDS ORDERED: POTASSIUM CHLORIDE 10 MEQ TABER PO PRN (15:30)
[2020-12-01] MEDS ORDERED: ACETAMINOPHEN 325 MG TAB PO PRN (15:30)
[2020-12-01] MEDS ORDERED: guaiFENesin DM 200/20 MG-10 ML 10 ML UDC PO PRN (15:30)
[2020-12-01] MEDS: DEXT 5% /NACL 0.9% 1,000 ML IV SCH (16:06)
[2020-12-01 16:42] LABS: CHOL/HDL RATIO 1.8 (1-4.5); FREE T4 (FREE THYROXINE) 1.32 ng/dL (0.76-1.46); MAGNESIUM 1.7 mg/dL (1.8-2.4); PHOSPHORUS 2.7 mg/dL (2.5-4.9); THYROID STIMULATING HORMONE 0.93 uIU/mL (0.34-3.74)
[2020-12-01 20:00] VITALS: BP 97/69
[2020-12-01] MEDS ORDERED: RISPERIDONE 2 MG PO SCH (21:00)
[2020-12-01] MEDS ORDERED: DONEPEZIL 10 MG TAB PO SCH (21:00)
[2020-12-01] MEDS: ATORVASTATIN 20 MG TAB PO SCH (21:17)
[2020-12-01] MEDS: risperiDONE 1 MG TAB PO SCH (21:17)
[2020-12-01] MEDS: MIRTAZAPINE 15 MG TAB PO SCH (21:18)
[2020-12-02] VITALS (7 sets, daily range): BP systolic 84–103; BP diastolic 48–63
[2020-12-02] MEDS: DEXT 5% /NACL 0.9% 1,000 ML IV SCH ×2 (02:16→13:39)
[2020-12-02 06:53] LABS: BASOPHILS % (AUTO) 0.4 % (0.0-2.0); EOSINOPHILS % (AUTO) 0.7 % (0.0-4.0); HEMATOCRIT 26.9 % (36-48); LYMPHOCYTES # (AUTO) 0.5 K/uL (2.5-16.5); LYMPHOCYTES % (AUTO) 11.3 % (20.5-51.1); MEAN CORPUSCULAR HEMOGLOBIN 30 pg (27-31); MEAN CORPUSCULAR HGB CONC 33 g/dL (33-37); MEAN CORPUSCULAR VOLUME 89.8 fL (80-94); MONOCYTES # (AUTO) 0.6 K/uL (0.8-1.0); MONOCYTES % (AUTO) 12.5 % (1.7-9.3); NEUTROPHILS # (AUTO) 3.6 K/uL (1.8-7.7); NEUTROPHILS % (AUTO) 75.1 % (42.2-75.2); PLATELET COUNT (AUTO) 118 K/uL (140-450); RED BLOOD CELL COUNT(AUTO) 2.99 MIL/uL (4.20-5.40); WHITE BLOOD COUNT (AUTO) 4.8 K/uL (4.8-10.8)
[2020-12-02 06:56] LABS: ANION GAP 12.5 (8-16); CARBON DIOXIDE 26.2 mmol/L (21-32); CREATININE 0.7 mg/dL (0.6-1.3)
[2020-12-02 07:09] LABS: POTASSIUM 2.7 mmol/L (3.5-5.1)
[2020-12-02] MEDS: lisinopriL 5 MG TAB PO SCH (09:00)
[2020-12-02] MEDS: ASPIRIN 81 MG TAB.CHEW PO SCH (09:16)
[2020-12-02] MEDS: PANTOPRAZOLE 40 MG TABEC PO SCH (09:16)
[2020-12-02] MEDS ORDERED: POTASSIUM CHLORIDE 40 MEQ, LIDOCAINE MPF 1% 25 MG in NACL 0.9% 250 ML IV SCH (09:30)
[2020-12-02] MEDS: HYDROcodone/APAP 7.5/325 MG 1 TAB PO PRN (10:15)
[2020-12-02] MEDS ORDERED: MAGNESIUM OXIDE 400 MG TAB PO SCH (10:30)
[2020-12-02 12:07] LABS: T4 (THYROXINE) 10.9 ug/dL (4.5-12.0)
[2020-12-02] MEDS: ATORVASTATIN 20 MG TAB PO SCH (20:18)
[2020-12-02] MEDS: MIRTAZAPINE 15 MG TAB PO SCH (20:18)
[2020-12-02] MEDS: risperiDONE 1 MG TAB PO SCH (20:18)
[2020-12-02] MEDS: DONEPEZIL 10 MG TAB PO SCH (20:18)
[2020-12-02] MEDS ORDERED: NACL 0.9% 500 ML IV ONE ×2 (20:35)
[2020-12-03] VITALS: BP 104/57
[2020-12-03] MEDS: HYDROcodone/APAP 7.5/325 MG 1 TAB PO PRN ×2 (02:25→20:34)
[2020-12-03 04:00] VITALS: BP 90/51
[2020-12-03] MEDS: DEXT 5% /NACL 0.9% 1,000 ML IV SCH ×3 (04:06→18:39)
[2020-12-03 06:47] LABS: BASOPHILS % (AUTO) 0.7 % (0.0-2.0); EOSINOPHILS # (AUTO) 0.1 K/uL (0-0.4); EOSINOPHILS % (AUTO) 2.6 % (0.0-4.0); HEMATOCRIT 24.6 % (36-48); HEMOGLOBIN 8.3 g/dL (12.0-16.0); LYMPHOCYTES # (AUTO) 0.6 K/uL (2.5-16.5); LYMPHOCYTES % (AUTO) 20.6 % (20.5-51.1); MEAN CORPUSCULAR HEMOGLOBIN 31 pg (27-31); MEAN CORPUSCULAR HGB CONC 34 g/dL (33-37); MONOCYTES # (AUTO) 0.4 K/uL (0.8-1.0); MONOCYTES % (AUTO) 12.5 % (1.7-9.3); NEUTROPHILS % (AUTO) 63.6 % (42.2-75.2); PLATELET COUNT (AUTO) 108 K/uL (140-450); RED BLOOD CELL COUNT(AUTO) 2.71 MIL/uL (4.20-5.40); RED CELL DISTRIBUTION WIDTH 14.1 % (11.6-13.7); WHITE BLOOD COUNT (AUTO) 3.1 K/uL (4.8-10.8)
[2020-12-03 06:55] LABS: ANION GAP 11.2 (8-16); CARBON DIOXIDE 24.7 mmol/L (21-32); CREATININE 0.6 mg/dL (0.6-1.3)
[2020-12-03 07:01] LABS: MAGNESIUM 1.4 mg/dL (1.8-2.4); PHOSPHORUS 2.1 mg/dL (2.5-4.9)
[2020-12-03 07:30] LABS: POTASSIUM 2.9 mmol/L (3.5-5.1)
[2020-12-03 08:00] VITALS: BP 115/65
[2020-12-03] MEDS ORDERED: POTASSIUM CHLORIDE 40 MEQ, LIDOCAINE MPF 1% 25 MG in NACL 0.9% 250 ML IV SCH (08:30)
[2020-12-03] MEDS: lisinopriL 5 MG TAB PO SCH (09:00)
[2020-12-03] MEDS: PANTOPRAZOLE 40 MG TABEC PO SCH (09:10)
[2020-12-03] MEDS: ASPIRIN 81 MG TAB.CHEW PO SCH (09:10)
[2020-12-03 12:00] VITALS: BP 101/58
[2020-12-03] MEDS ORDERED: MAG SULF 2000 MG/WATER PREMIX 50 ML IV SCH (13:00)
[2020-12-03 16:00] VITALS: BP 118/65
[2020-12-03 20:00] VITALS: BP 112/54
[2020-12-03] MEDS: risperiDONE 1 MG TAB PO SCH (20:25)
[2020-12-03] MEDS: MIRTAZAPINE 15 MG TAB PO SCH (20:25)
[2020-12-03] MEDS: DONEPEZIL 10 MG TAB PO SCH (20:25)
[2020-12-03] MEDS: ATORVASTATIN 20 MG TAB PO SCH (20:25)
[2020-12-03 22:30] LABS: APPEARANCE,URINE CLEAR (CLEAR); BILIRUBIN,URINE NEGATIVE (NEGATIVE); BLOOD, URINE NEGATIVE (NEGATIVE); COLOR,URINE YELLOW (YELLOW); LEUKOCYTE ESTERASE ,URINE 1+ (NEGATIVE); NITRITE, URINE NEGATIVE (NEGATIVE); UGLUCOSE NEGATIVE (NEGATIVE)
[2020-12-03 22:40] LABS: RBC,URINE 0-5 /HPF (0-5)
[2020-12-03 22:43] LABS: BARBITURATE, URINE NEGATIVE ng/ml (NEG <=200); BENZODIAZEPINE, URINE NEGATIVE ng/mL (NEG <=200); CANNABINOID, URINE NEGATIVE ng/mL (NEG <=50); COCAINE, URINE NEGATIVE ng/mL (NEG <=300); OPIATE, URINE POSITIVE ng/mL (NEG <=2000); PHENCYCLIDINE SCREEN,URINE NEGATIVE ng/mL (NEG <=25)
[2020-12-04] MEDS: DEXT 5% /NACL 0.9% 1,000 ML IV SCH ×3 (03:31→20:11)
[2020-12-04 04:00] VITALS: BP 100/53
[2020-12-04 06:19] LABS: BASOPHILS % (AUTO) 0.6 % (0.0-2.0); EOSINOPHILS # (AUTO) 0.1 K/uL (0-0.4); EOSINOPHILS % (AUTO) 2.6 % (0.0-4.0); HEMATOCRIT 25.5 % (36-48); HEMOGLOBIN 8.6 g/dL (12.0-16.0); LYMPHOCYTES # (AUTO) 0.6 K/uL (2.5-16.5); MEAN CORPUSCULAR HEMOGLOBIN 31 pg (27-31); MEAN CORPUSCULAR HGB CONC 34 g/dL (33-37); MONOCYTES # (AUTO) 0.4 K/uL (0.8-1.0); MONOCYTES % (AUTO) 11.1 % (1.7-9.3); NEUTROPHILS # (AUTO) 2.3 K/uL (1.8-7.7); NEUTROPHILS % (AUTO) 68.7 % (42.2-75.2); PLATELET COUNT (AUTO) 122 K/uL (140-450); RED CELL DISTRIBUTION WIDTH 14.1 % (11.6-13.7); WHITE BLOOD COUNT (AUTO) 3.3 K/uL (4.8-10.8)
[2020-12-04 06:52] LABS: ANION GAP 10.5 (8-16); CARBON DIOXIDE 25.8 mmol/L (21-32); CREATININE 0.5 mg/dL (0.6-1.3); POTASSIUM 3.3 mmol/L (3.5-5.1)
[2020-12-04 08:00] VITALS: BP 103/56
[2020-12-04] MEDS: lisinopriL 5 MG TAB PO SCH (09:00)
[2020-12-04] MEDS: HYDROcodone/APAP 7.5/325 MG 1 TAB PO PRN (10:02)
[2020-12-04] MEDS: ASPIRIN 81 MG TAB.CHEW PO SCH (10:02)
[2020-12-04] MEDS: PANTOPRAZOLE 40 MG TABEC PO SCH (10:03)
[2020-12-04] MEDS ORDERED: LORazepam 2 MG/ML VIAL IM/IVP PRN ×2 (14:45→14:50)
[2020-12-04 16:00] VITALS: BP 139/71
[2020-12-04] MEDS ORDERED: levETIRAcetam 1,000 MG in NACL 0.9% 100 ML IV SCH (16:00)
[2020-12-04 20:00] VITALS: BP_SYST 148; BP_SYST 99; BP_DIAS 52; BP_DIAS 89
[2020-12-04] MEDS: ATORVASTATIN 20 MG TAB PO SCH (21:30)
[2020-12-04] MEDS: levETIRAcetam 500 MG TAB PO SCH (21:30)
[2020-12-04] MEDS: risperiDONE 1 MG TAB PO SCH (21:30)
[2020-12-04] MEDS: MIRTAZAPINE 15 MG TAB PO SCH (21:31)
[2020-12-04] MEDS: DONEPEZIL 10 MG TAB PO SCH (21:43)
[2020-12-05] MEDS: DEXT 5% /NACL 0.9% 1,000 ML IV SCH ×4 (00:32→23:41)
[2020-12-05] MEDS: HYDROcodone/APAP 7.5/325 MG 1 TAB PO PRN ×3 (02:19→20:22)
[2020-12-05 06:00] VITALS: BP_SYST 125; BP_SYST 126; BP_DIAS 73; BP_DIAS 77
[2020-12-05 06:07] LABS: BASOPHILS % (AUTO) 0.7 % (0.0-2.0); EOSINOPHILS # (AUTO) 0.1 K/uL (0-0.4); EOSINOPHILS % (AUTO) 2.2 % (0.0-4.0); HEMATOCRIT 25.4 % (36-48); HEMOGLOBIN 8.5 g/dL (12.0-16.0); LYMPHOCYTES # (AUTO) 0.8 K/uL (2.5-16.5); LYMPHOCYTES % (AUTO) 21.6 % (20.5-51.1); MEAN CORPUSCULAR HEMOGLOBIN 30 pg (27-31); MEAN CORPUSCULAR HGB CONC 34 g/dL (33-37); MEAN CORPUSCULAR VOLUME 90.2 fL (80-94); MONOCYTES # (AUTO) 0.4 K/uL (0.8-1.0); MONOCYTES % (AUTO) 11.1 % (1.7-9.3); NEUTROPHILS # (AUTO) 2.5 K/uL (1.8-7.7); NEUTROPHILS % (AUTO) 64.4 % (42.2-75.2); PLATELET COUNT (AUTO) 133 K/uL (140-450); RED BLOOD CELL COUNT(AUTO) 2.81 MIL/uL (4.20-5.40); RED CELL DISTRIBUTION WIDTH 14.4 % (11.6-13.7); WHITE BLOOD COUNT (AUTO) 3.9 K/uL (4.8-10.8)
[2020-12-05 06:11] LABS: ANION GAP 10.7 (8-16); CARBON DIOXIDE 27.2 mmol/L (21-32); CREATININE 0.5 mg/dL (0.6-1.3)
[2020-12-05 06:28] LABS: POTASSIUM 2.9 mmol/L (3.5-5.1)
[2020-12-05] MEDS ORDERED: KCL 20 MEQ/WATER INJ PREMIX 200 ML IV SCH (07:00)
[2020-12-05] MEDS ORDERED: POTASSIUM CHLORIDE 10 MEQ TABER PO SCH (07:00)
[2020-12-05] MEDS: lisinopriL 5 MG TAB PO SCH (08:14)
[2020-12-05] MEDS: PANTOPRAZOLE 40 MG TABEC PO SCH (08:15)
[2020-12-05] MEDS: ASPIRIN 81 MG TAB.CHEW PO SCH (08:15)
[2020-12-05] MEDS: levETIRAcetam 500 MG TAB PO SCH (08:21)
[2020-12-05] MEDS ORDERED: MORPHINE SULFATE 2 MG/ML SYR IVP PRN (12:20)
[2020-12-05] MEDS ORDERED: LACO200T PO (13:16)
[2020-12-05 16:06] LABS: ANION GAP 11.5 (8-16); CARBON DIOXIDE 25.6 mmol/L (21-32); CREATININE 0.5 mg/dL (0.6-1.3); POTASSIUM 4.1 mmol/L (3.5-5.1)
[2020-12-05 18:00] VITALS: BP 105/61
[2020-12-05 20:00] VITALS: BP 125/65
[2020-12-05] MEDS: DONEPEZIL 10 MG TAB PO SCH (20:18)
[2020-12-05] MEDS: MIRTAZAPINE 15 MG TAB PO SCH (20:18)
[2020-12-05] MEDS: risperiDONE 1 MG TAB PO SCH (20:18)
[2020-12-05] MEDS: ATORVASTATIN 20 MG TAB PO SCH (20:18)
[2020-12-05] MEDS: VIMPAT 10MG/ML PO SCH (20:34)
[2020-12-05] MEDS ORDERED: LACOSAMIDE PO SCH ×2 (21:00)
[2020-12-06 04:00] VITALS: BP 90/50
[2020-12-06 06:54] LABS: BASOPHILS % (AUTO) 0.4 % (0.0-2.0); EOSINOPHILS # (AUTO) 0.1 K/uL (0-0.4); EOSINOPHILS % (AUTO) 1.8 % (0.0-4.0); HEMATOCRIT 25.7 % (36-48); HEMOGLOBIN 8.5 g/dL (12.0-16.0); LYMPHOCYTES # (AUTO) 0.7 K/uL (2.5-16.5); MEAN CORPUSCULAR HEMOGLOBIN 31 pg (27-31); MEAN CORPUSCULAR HGB CONC 33 g/dL (33-37); MEAN CORPUSCULAR VOLUME 92.5 fL (80-94); MONOCYTES # (AUTO) 0.5 K/uL (0.8-1.0); NEUTROPHILS # (AUTO) 3.2 K/uL (1.8-7.7); NEUTROPHILS % (AUTO) 71.8 % (42.2-75.2); PLATELET COUNT (AUTO) 157 K/uL (140-450); RED BLOOD CELL COUNT(AUTO) 2.77 MIL/uL (4.20-5.40); RED CELL DISTRIBUTION WIDTH 14.9 % (11.6-13.7); WHITE BLOOD COUNT (AUTO) 4.5 K/uL (4.8-10.8)
[2020-12-06 07:00] LABS: CARBON DIOXIDE 27.6 mmol/L (21-32); CREATININE 0.6 mg/dL (0.6-1.3); POTASSIUM 3.6 mmol/L (3.5-5.1)
[2020-12-06 08:00] VITALS: BP 99/58
[2020-12-06] MEDS: lisinopriL 5 MG TAB PO SCH (09:00)
[2020-12-06] MEDS: DEXT 5% /NACL 0.9% 1,000 ML IV SCH (09:13)
[2020-12-06] MEDS: ASPIRIN 81 MG TAB.CHEW PO SCH (09:32)
[2020-12-06] MEDS: VIMPAT 10MG/ML PO SCH (09:33)
[2020-12-06] MEDS: PANTOPRAZOLE 40 MG TABEC PO SCH (09:33)
[2020-12-06] MEDS: HYDROcodone/APAP 7.5/325 MG 1 TAB PO PRN (09:34)
[2020-12-06] MEDS ORDERED: ROC2I IV (11:11)
== END 2020-12-06 15:20 | DRG 963 ==
LOC: MED 09:45 → MTU 14:13
PROVIDERS: ADMIT Family Medicine; ATTEND Family Medicine
DX: S32.592A Other specified fracture of left pubis, initial encounter for closed fracture (principal); G93.41 Metabolic encephalopathy; S37.22XA Contusion of bladder, initial encounter; D61.818 Other pancytopenia; N39.0 Urinary tract infection, site not specified; S32.591A Other specified fracture of right pubis, initial encounter for closed fracture; F02.80 Dementia in other diseases classified elsewhere, unspecified severity, without behavioral disturbance, psychotic disturbance, mood disturbance, and anxiety; E86.0 Dehydration; E78.5 Hyperlipidemia, unspecified; G30.9 Alzheimer's disease, unspecified; I10 Essential (primary) hypertension; I25.10 Atherosclerotic heart disease of native coronary artery without angina pectoris; K57.90 Diverticulosis of intestine, part unspecified, without perforation or abscess without bleeding; N21.0 Calculus in bladder; Z20.822 Contact with and (suspected) exposure to COVID-19; W18.30XA Fall on same level, unspecified, initial encounter; E83.42 Hypomagnesemia; E87.6 Hypokalemia; G40.909 Epilepsy, unspecified, not intractable, without status epilepticus; E83.39 Other disorders of phosphorus metabolism; Y93.89 Activity, other specified; Y99.8 Other external cause status; Z88.5 Allergy status to narcotic agent; Y92.129 Unspecified place in nursing home as the place of occurrence of the external cause
CPT/HCPCS: 36415; 70450; 70490; 71045; 72131; 72170; 72192; 76700; 80048; 80053; 80305; 81001; 82150; 83036; 83690; 83735; 83880; 84100; 84436; 84439; 84443; 84479; 84484; 85025; 85610; 85730; 87081; 87086; 93005; 97110; 97112; 97116; 97163-GP; 97530; 99285; J0696; J1644; J1953; J2001; J2270; J3475; J3480; J7030; J7060

== ENCOUNTER 2021-01-15 12:09 | Emergency (ER) | payer OTHER, MEDICAID, SELFPAY ==
[~2021-01-15] VITALS: Ht 167.6 cm; Wt 54.4 kg
[2021-01-15 12:09] VITALS: BP 116/64
[~2021-01-15 12:09] MED LIST changes: -DOCU1TAB73 PO; +LACO10SO3 PO; -LACO150T PO; +LACO200T PO; +LACT-103 PO; -LAM25 PO; -MEMA10TA PO; +MIRT-91 PO; +ONDA4TAB PO; -POTA10TE30 PO; -RISP0.5T3 PO; +RISP2TAB PO; +ROC2I IV; -ZINC220C28 PO
--- NOTE | 2021-01-15 12:09 | NUR ---
Patient ANNALEE SAMUEL from [facility], transferred to bed 10. RN evaluating the patient at bedside.
--- NOTE | 2021-01-15 12:16 | NUR ---
DR BUTCHER AT BEDSIDE EVALUATING PT
[2021-01-15] MEDS ORDERED: NACL 0.9% 1,000 ML IV ONE (12:30)
[2021-01-15] MEDS ORDERED: LIDOCAINE/EPI 1% 1:100000 20 ML VIAL INJ ONE (12:30)
--- NOTE | 2021-01-15 12:51 | NUR ---
LAB AT BEDSIDE FOR BLOOD DRAW
--- NOTE | 2021-01-15 12:58 | NUR ---
Patient taken to CT scan via gurney by [facility].
[2021-01-15 13:02] LABS: BASOPHILS % (AUTO) 0.9 % (0.0-2.0); EOSINOPHILS # (AUTO) 0.1 K/uL (0-0.4); EOSINOPHILS % (AUTO) 2.3 % (0.0-4.0); HEMOGLOBIN 12.3 g/dL (12.0-16.0); LYMPHOCYTES # (AUTO) 0.5 K/uL (2.5-16.5); LYMPHOCYTES % (AUTO) 15.7 % (20.5-51.1); MEAN CORPUSCULAR HEMOGLOBIN 30 pg (27-31); MEAN CORPUSCULAR HGB CONC 33 g/dL (33-37); MEAN CORPUSCULAR VOLUME 89.5 fL (80-94); MONOCYTES # (AUTO) 0.4 K/uL (0.8-1.0); NEUTROPHILS # (AUTO) 2.1 K/uL (1.8-7.7); NEUTROPHILS % (AUTO) 68.1 % (42.2-75.2); PLATELET COUNT (AUTO) 140 K/uL (140-450); RED BLOOD CELL COUNT(AUTO) 4.13 MIL/uL (4.20-5.40); RED CELL DISTRIBUTION WIDTH 13.1 % (11.6-13.7); WHITE BLOOD COUNT (AUTO) 3.1 K/uL (4.8-10.8)
--- NOTE | 2021-01-15 13:08 | NUR ---
PT RETURNED FROM CT
--- NOTE | 2021-01-15 13:09 | NUR ---
RADIOLOGY NOTIFIED THAT PROCEDURE WILL TAKE PLACE TOMORROW, PT CAN EAT NOW, BUT MUST BE NPO BY MIDNIGHT.
[2021-01-15 13:17] LABS: ALBUMIN 3.6 g/dL (3.4-5.0); ANION GAP 10.1 (8-16); CARBON DIOXIDE 27.9 mmol/L (21-32); CREATININE 0.7 mg/dL (0.6-1.3)
[2021-01-15 13:19] LABS: PROTHROMBIN TIME 11.4 secs (10.8-13.4)
[2021-01-15] MEDS ORDERED: POTASSIUM CHLORIDE 10 MEQ TABER PO ONE (13:30)
[2021-01-15] MEDS ORDERED: MAGNESIUM OXIDE 400 MG TAB PO ONE (13:30)
[2021-01-15 13:32] LABS: TOTAL BILIRUBIN 0.8 mg/dL (0.0-1.0)
--- NOTE | 2021-01-15 13:35 | NUR ---
70 Y/O FEMALE ANNALEE FROM [facility] PRESENTS TO ED WITH MECHANICAL FALL. PT HAS LACERATION ABOVE L EYEBROW. PTS HEAD IS WRAPPED WITH GAUZE, CONTROLLED BLEEDING. PT ALSO HAS SKIN TEARS ON BILATEROL ELBOWS AND L TEMPORAL. STAFF DENIES LOC. DENIES N/V/D; SKIN IS PINK/COOL/DRY; AAOX3 UNABLE TO AMBULATE AT THIS TIME; LUNGS CLEAR BL; HR EVEN AND REGULAR; PT DENIES ANY FEVER, CP, SOB, OR COUGH AT THIS TIME; PATIENT STATES PAIN OF 10/10 AT THIS TIME; VSS; PATIENT POSITIONED FOR COMFORT; HOB ELEVATED; BEDRAILS UP X2; BED DOWN. ER MD MADE AWARE OF PT STATUS. PMH: DEMENTIA, EPILEPSY, HTN, HLD ALLERGY :CODEINE
--- NOTE | 2021-01-15 14:40 | NUR ---
Patient to be transferred to [facility] ED. Is being transferred due to HIGHER LEVEL OF CARE. Receiving facility has accepting physician and available space. ER physician has signed transfer form. Patient or responsible democrat has agreed to transfer and signed form. Patient belongings inventoried and will be sent with patient. Copy of nursing notes, lab reports, EKG, Physicians Orders and X-rays to be sent with patient. Report called to MASSIEL GAYTAN at receiving facility. [facility] service has been called for transfer. ETA is 1440.
--- NOTE | 2021-01-15 14:51 | NUR ---
DAUGHTER ON FILE NOTIFIED OF CONDITION AND TRANSFER, CURRENTLY SPEAKING WITH ERMD FOR RESULTS.
[2021-01-15 14:52] VITALS: BP 137/68
== END 2021-01-15 14:53 | disposition short-term general hospital (02) ==
LOC: MED 12:09
DX: S01.81XA Laceration without foreign body of other part of head, initial encounter (principal); I60.9 Nontraumatic subarachnoid hemorrhage, unspecified; E87.6 Hypokalemia; F03.90 Unspecified dementia, unspecified severity, without behavioral disturbance, psychotic disturbance, mood disturbance, and anxiety; R74.01 Elevation of levels of liver transaminase levels; G40.909 Epilepsy, unspecified, not intractable, without status epilepticus; Z79.82 Long term (current) use of aspirin; Z88.5 Allergy status to narcotic agent; Z79.899 Other long term (current) drug therapy; W18.30XA Fall on same level, unspecified, initial encounter; Y93.89 Activity, other specified; Y92.89 Other specified places as the place of occurrence of the external cause; Y99.8 Other external cause status
CPT/HCPCS: 36415; 70450; 80053; 84484; 85025; 85610; 85730; 90471; 90715; 93005; 96360; 96361; 99291; J2001; J7030